=== PATIENT | male | born 1955 | race Caucasian/White ===

== ENCOUNTER 2021-08-03 15:45 | Emergency (ER) | payer MEDICARE, MEDICAID ==
[2021-08-03 15:55] VITALS: BP 137/90
[2021-08-03] MEDS ORDERED: HYDROcod/ACETAM 5/325 MG TABLET PO STA (16:39)
[2021-08-03] MEDS ORDERED: KETOROLAC 30 MG/ML VIAL IM STA (16:39)
--- NOTE | 2021-08-03 16:42 | ED Physician Documentation ---
PD HPI UPPER EXT INJURY - Stated complaint Stated Complaint: LEFT SHOULDER INJURY - Chief complaint Chief Complaint: Trauma Ext - History obtained from History obtained from: Patient - Additonal information Additional information: Patient comes emergency department for chief complaint of left shoulder injury after fall. He states he was carrying a 50 pound bag of bird seed through a doorway when he tripped and fell to the ground, landing on the lateral aspect of his left shoulder. Patient states he already has problems with that shoulder and had surgery about 10 years ago. Patient denies any other injuries. Incident happened this afternoon. No other complaints at this time. Review of Systems Ten Systems: 10 systems reviewed and negative Constitutional: reports: Reviewed and negative Eyes: reports: Reviewed and negative Ears: reports: Reviewed and negative Nose: reports: Reviewed and negative Throat: reports: Reviewed and negative Cardiac: reports: Reviewed and negative Respiratory: reports: Reviewed and negative GI: reports: Reviewed and negative : reports: Reviewed and negative Skin: reports: Reviewed and negative Musculoskeletal: reports: Extremity pain, Joint pain Neurologic: reports: Reviewed and negative Psychiatric: reports: Reviewed and negative Endocrine: reports: Reviewed and negative Immunocompromised: reports: Reviewed and negative PD PAST MEDICAL HISTORY - Past Medical History Past Medical History: Yes GI: GI bleed - Past Surgical History Past Surgical History: Yes General: EGD Ortho: Rotator cuff repair - Present Medications Home Medications: Ambulatory Orders Medication Instructions Recorded Confirmed HYDROcod/ACETAM 5/325 [[place] 5/325] 1 - 2 tablet PO Q6H PRN #14 tablet 08/03/21 Ibuprofen [Motrin] 1 tablet PO Q8H PRN #30 tablet 08/03/21 - Allergies Allergies/Adverse Reactions: Allergies Allergy/AdvReac Type Severity Reaction Status Date / Time No Known Drug Allergies Allergy Verified 08/03/21 15:54 - Social History Does the pt smoke?: Yes Smoking Status: Current every day smoker Does the pt drink ETOH?: No Does the pt have substance abuse?: No PD ED PE NORMAL - Vitals Vital signs reviewed: Yes - General General: Alert and oriented X 3, No acute distress, Well developed/nourished - HEENT HEENT: Atraumatic, PERRL, EOMI, Moist mucous membranes - Neck Neck: Supple, no meningeal sign - Cardiac Cardiac: Strong equal pulses - Respiratory Respiratory: No respiratory distress - Derm Derm: Normal color, Warm and dry, No rash - Extremities Extremities: No deformity, Other (Tenderness over lateral aspect of left shoulder without deformity or edema. Lesser degree of anterior tenderness. No posterior tenderness. Severely limited range of motion with forward flexion and internal rotation, secondary to pain. Moderately limited abduction secondary to pain.) - Neuro Neuro: Alert and oriented X 3, No motor deficit, No sensory deficit - Psych Psych: Normal mood, Normal affect Results - Vitals Vitals: Vital Signs - 24 hr 08/03/21 15:49 Temperature 36.9 C Heart Rate 100 Respiratory 18 Rate Blood Pressure 137/90 H O2 Saturation 97 Oxygen O2 Source Room air - Rads (name of study) L shoulder XR Radiology: Final report received, EMP read indepedently, See rad report PD MEDICAL DECISION MAKING - ED course Complexity details: reviewed results, re-evaluated patient, considered differential, d/w patient ED course: Patient was treated symptomatically in the emergency department. We have discussed symptomatic management at home and the need for follow-up. Departure - Departure Disposition: 01 Home, Self Care Clinical Impression: Shoulder contusion Qualifiers: Encounter type: initial encounter Laterality: left Qualified Code(s): S40.012A - Contusion of left shoulder, initial encounter Shoulder sprain Qualifiers: Encounter type: initial encounter Shoulder sprain type: unspecified sprain Laterality: left Qualified Code(s): S43.402A - Unspecified sprain of left shoulder joint, initial encounter Condition: Stable Instructions: ED Contusion Shoulder, ED Sprain Shoulder Follow-Up: Kev Jasso MD [Credentialed Staff Provider] - Prescriptions: Ibuprofen [Motrin] 1 tablet PO Q8H PRN #30 tablet PRN Reason: PAIN &/OR FEVER HYDROcod/ACETAM 5/325 [[place] 5/325] 1 - 2 tablet PO Q6H PRN #14 tablet PRN Reason: Pain Comments: Your x-ray looks goodno broken bones. You have most likely bruised and sprained your shoulder, and will need to follow-up in primary care. Please call the numbers provided to get established with a new primary care physician [place]. Your medications have been transmitted electronically to [facility] in [place].
--- NOTE | 2021-08-03 17:11 | XRAY Report ---
PROCEDURE: Shoulder 3 View LT INDICATIONS: injury/pain TECHNIQUE: 3 views of the shoulder were acquired. COMPARISON: None. FINDINGS: Bones: No fractures or dislocations. No suspicious bony lesions. Visualized ribs appear intact. M oderate to severe acromioclavicular degenerative narrowing. Soft tissues: No suspicious soft tissue calcifications. IMPRESSION: No visualized acute fracture or dislocation. However, occult injury cannot be excluded. Recommend short interval imaging follow-up in 7-10 days as clinically indicated for additional evalua tion. Reviewed by: Rachna Jaramillo MD on 08/03/2021 5:10 PM PDT Approved by: Rachna Jaramillo MD on 08/03/2021 5:10 PM PDT Station ID: [id number]
== END 2021-08-03 17:06 | disposition home or self-care (01) ==
LOC: ED 15:45
DX: S43.402A Unspecified sprain of left shoulder joint, initial encounter (principal); S40.012A Contusion of left shoulder, initial encounter; W01.0XXA Fall on same level from slipping, tripping and stumbling without subsequent striking against object, initial encounter; Y93.89 Activity, other specified; F17.200 Nicotine dependence, unspecified, uncomplicated
CPT/HCPCS: 73030; 96372; 99283; A9270

== ENCOUNTER 2022-03-10 12:10 | Emergency (ER) | payer MEDICARE, MEDICAID ==
[2022-03-10 12:28] VITALS: BP 183/102
[2022-03-10] MEDS ORDERED: IBUPROFEN 800 MG TABLET PO STA (12:35)
--- NOTE | 2022-03-10 12:36 | ED Physician Documentation ---
PD HPI UPPER EXT INJURY - Stated complaint Stated Complaint: LEFT HAND INJURY - Chief complaint Chief Complaint: Trauma Ext - History obtained from History obtained from: Patient - Additonal information Additional information: 66-year-old gentleman was pulling up his pants 2 days ago and fell and hurt his left wrist as it was behind him when he fell. He also hit his head but has no headache or loss of consciousness. Wrist pain is severe. He also complains of left shoulder pain that is now a chronic issue with no worsening after this fall. He could not come in immediately because he is a full-time live-in caregiver and could not get relief until today. Review of Systems Constitutional: reports: Reviewed and negative Ears: reports: Reviewed and negative Cardiac: reports: Reviewed and negative Respiratory: reports: Reviewed and negative PD PAST MEDICAL HISTORY - Past Medical History GI: GI bleed - Past Surgical History Past Surgical History: Yes General: EGD Ortho: Rotator cuff repair - Present Medications Home Medications: Ambulatory Orders Medication Instructions Recorded Confirmed HYDROcod/ACETAM 5/325 [[place] 5/325] 1 - 2 tablet PO Q6H PRN #14 tablet 08/03/21 Ibuprofen [Motrin] 1 tablet PO Q8H PRN #30 tablet 08/03/21 HYDROcod/ACETAM 5/325 [[place] 5/325] 1 - 2 tab PO Q6H PRN #30 tablet 03/10/22 - Allergies Allergies/Adverse Reactions: Allergies Allergy/AdvReac Type Severity Reaction Status Date / Time No Known Drug Allergies Allergy Verified 03/10/22 12:26 - Social History Does the pt smoke?: Yes Smoking Status: Current every day smoker Does the pt drink ETOH?: No Does the pt have substance abuse?: No PD ED PE NORMAL - Vitals Vital signs reviewed: Yes - General General: Alert and oriented X 3, No acute distress - HEENT HEENT: PERRL, EOMI - Neck Neck: Supple, no meningeal sign, No bony TTP - Extremities Extremities: Other (The dorsum of the left wrist is quite swollen with severely limited range of motion due to pain. He is tender over the distal radius, no snuffbox or obvious carpal tenderness. The right shoulder is nontender but he is only able to abduct to about 90 degrees which he says is chronic. Elbow NTTP) - Neuro Neuro: Alert and oriented X 3, Normal speech Eye Opening: Spontaneous Motor: Obeys Commands Verbal: Oriented GCS Score: 15 Results - Vitals Vitals: Vital Signs - 24 hr 03/10/22 12:25 Temperature 36.4 C L Heart Rate 113 H Respiratory 18 Rate Blood Pressure 183/102 H O2 Saturation 96 Oxygen O2 Source Room air - Rads (name of study) L wrist XR Radiology: EMP read contemporaneously (Minimally impacted intra-articular distal radial fracture) Procedures - Splint (location) L wrist Splint applied by: Physician Type of splint: Fiberglass, Short arm, Volar cock up Other: Patient tolerated well, No complications, Neurovascular intact Departure - Departure Disposition: 01 Home, Self Care Clinical Impression: Fracture of left distal radius Condition: Good Record reviewed to determine appropriate education?: Yes Instructions: ED Fx Forearm Radius Ulna No Redu Requ Follow-Up: [facility] [Provider Group] Prescriptions: HYDROcod/ACETAM 5/325 [[place] 5/325] 1 - 2 tab PO Q6H PRN #30 tablet PRN Reason: Pain Comments: I sent your prescription electronically to the [facility] pharmacy at the [place] [id number] and [facility] here in [place]. You should follow-up with the orthopedist regarding your wrist fracture, also the ongoing issues you are having with your left shoulder. Call their office today for an appointment within a week to 10-day timeframe. Keep the splint on and dry until then. Do not remove it, do not get it wet. I am prescribing a short course of narcotic pain medication for you. These are potentially dangerous and addictive medications that should be used carefully. These medications may constipate you. Take an [id number] stool softener (docusate) twice daily with plenty of water while taking these medications. If you go 24 hours without a bowel movement, take [id number] miralax, per package instructions. Do not drink or drive while taking these medications. If you received narcotic or sedating medications while in the emergency department, do not drive for 24 hours. Store this medication in a safe, secure place and out of reach of children. It is a violation of federal law to give or sell this medication to another person or to use in a manner other than prescribed. The ED will not refill narcotic prescriptions, including prescriptions lost or stolen. To dispose of unwanted medications: 1. [facility] at [address] in [place] has a medication drop box. They accept prescription medications (in pill form) Sunday through Sunday 9:00 a.m. to 5:00 p.m. 2. The [facility] accepts prescription medications (in pill form only) for disposal year round. Call for more information. 3. Contact the [facility] for the next [employer] sponsored prescription drug collection event. , [phone], or [phone]; Note that many narcotic pain relievers also contain Tylenol/acetaminophen. Please ensure that your total dose of acetaminophen from all sources does not exceed 3 g (3000 mg) per day. Discharge Date/Time: 03/10/22 13:18
--- NOTE | 2022-03-10 13:13 | XRAY Report ---
PROCEDURE: Wrist 4 View LT INDICATIONS: Trauma TECHNIQUE: 4 views of the wrist were acquired. COMPARISON: None FINDINGS: Bones: Diffuse osteopenia. There is a minimally impacted, intra-articular fracture of the distal left radius. Overlying soft tissue edema. Remaining of the visualized osseous structures appear intact. N o suspicious bony lesions. Scaphoid view: Scaphoid appears intact. Scapholunate interval is maintained. Soft tissues: No suspicious soft tissue calcifications. IMPRESSION: Minimally impacted, intra-articular fracture of the distal left radius. Reviewed by: Stevie Aguilera MD on 03/10/2022 1:11 PM PDT Approved by: Stevie Aguilera MD on 03/10/2022 1:11 PM PDT Station ID: [id number]
== END 2022-03-10 13:18 | disposition home or self-care (01) ==
LOC: ED 12:10
DX: S52.572A Other intraarticular fracture of lower end of left radius, initial encounter for closed fracture (principal); W01.0XXA Fall on same level from slipping, tripping and stumbling without subsequent striking against object, initial encounter; F17.200 Nicotine dependence, unspecified, uncomplicated
CPT/HCPCS: 29125; 73110; 99283; A9270